=== PATIENT | male | born 1965 | race Caucasian/White ===

== ENCOUNTER 2020-07-22 21:05 | Emergency (ER) | payer BC, SELFPAY ==
[2020-07-22 21:07] VITALS: BP 149/94; PULSE 63; RESP 16; TEMP 36.8; O2SAT 99; BMI 29.0
[2020-07-22 21:14] VITALS: BP 149/94; PULSE 61; O2SAT 99
[2020-07-22 21:30] VITALS: BP 151/91; PULSE 59; O2SAT 99
--- NOTE | 2020-07-22 21:56 | HMH.EDDENT ---
ED Disposition Clinical Impression: Dental infection, Pain, dental Disposition: Home, Self-Care Condition on Discharge: Good Instructions: DI for Dental Pain Additional Instructions: use meds and see pcp and dentist for follow up Prescriptions: clindamycin HCL [Clindamycin HCl] 300 mg PO TID #30 cap Transmission Status: Pending to [facility] [id number] Ketorolac Tromethamine [Toradol 10mg tablet] 10 mg PO Q6HP PRN #7 tab MDD 40mg/day PRN Reason: Moderate To Severe Pain Transmission Status: Pending to [facility] [id number] Referrals: Nahid Segovia [Primary Care Provider] - - Critical Care Critical Care Time: No Attestation: On 07/22/20, the high probability of a clinically significant, sudden or life threatening deterioration of the following system(s) required my full and direct attention, intervention and personal management. The time I documented below is in addition to time spent performing reported procedures but includes the following listed in this critical care notation. Medical Decision Making - Medical Records Medical records reviewed: Yes: I reviewed the patient's medical records. - Escobar Inquiry Pt receiving controlled substance: No Vital Signs: 07/22/20 21:07 07/22/20 21:14 07/22/20 21:30 Temperature 98.3 F Temperature Source Oral Pulse Rate 61 59 L Pulse Rate [Left Radial] 63 Respiratory Rate 16 Blood Pressure 149/94 H 151/91 H Blood Pressure [Right Arm] 149/94 H Blood Pressure Mean 117 118 Blood Pressure Mean [Right Arm] 112 Blood Pressure Source [Right Arm] Automatic Cuff Blood Pressure Position [Right Arm] Sitting 02 Sat by Pulse Oximetry 99 99 99 Oxygen Delivery Method Room Air - Lab Data Lab results reviewed: Yes: I reviewed the patient's lab results. Lab Results 07/22/20 22:06: Sodium 137, Potassium 3.6, Chloride 106, Carbon Dioxide 22, Anion Gap 12.6, BUN 14, Creatinine 0.60 L, Estimated Creat Clear 165, Estimated GFR 140, Est GFR ( Amer) 169, Glucose 103 H, Calcium 9.3 Result diagrams: 07/22/20 22:06 Orders (Tests/Meds): ED MEDICATIONS Generic Name Dose Route Start Last Admin Trade Name Freq PRN Reason Stop Dose Admin Benzocaine/Butamben/Tetracaine HCl 1 gm 07/22/20 21:50 07/22/20 22:15 Tetracaine/Benzocaine/Butamben 56 Gm Bath TP 08/21/20 21:49 1 gm NEEDED PRN Administration Mild to Moderate Pain Ceftriaxone Sodium 1 gm/ 50 mls @ 100 mls/hr 07/22/20 22:00 07/22/20 22:16 Sodium Chloride IV 08/05/20 21:59 100 mls/hr Q24H LI Administration Protocol Clindamycin Phosphate 600 mg/ 104 mls @ 100 mls/hr 07/22/20 21:59 Sodium Chloride IV 07/22/20 23:01 ONCE ONE Protocol Discontinued Medications Generic Name Dose Route Start Last Admin Trade Name Kevinq PRN Reason Stop Dose Admin Ketorolac Tromethamine 60 mg 07/22/20 21:46 07/22/20 22:16 Ketorolac 60mg/2ml Vial IM 07/22/20 21:47 Not Given ONCE ONE Ketorolac Tromethamine 30 mg 07/22/20 21:58 07/22/20 22:15 Ketorolac 30mg/Ml Vial IV 07/22/20 21:59 30 mg ONCE ONE Administration Lidocaine HCl 15 ml 07/22/20 21:50 07/22/20 22:15 Lidocaine 2% Viscous Dalia 15ml Udc PO 07/22/20 21:51 15 ml ONCE ONE Administration Methylprednisolone Sodium Succinate 125 mg 07/22/20 21:58 07/22/20 22:16 Methylprednisolone Sod Succ 125mg Vial IV 07/22/20 21:59 125 mg ONCE ONE Administration ORDERS Category Date Time Status CBC [Complete Blood Count Auto Diff] Stat Lab 07/22/20 22:06 Received Blood Culture Stat Micro 07/22/20 22:06 Received Medical Decision Narrative: ongoing dental infection but no abscess - will add to current treatment and have pt contact pcp and dentist Dental HPI - General Chief complaint: Dental/Oral Stated complaint: Swollen/infected tooth pain in jaw and down neck Time Seen by Provider: 07/22/20 21:15 Mode of Arrival: Ambulatory Source of Information: Patient, Sig
[2020-07-22 22:31] LABS: Anion Gap 12.6 mEq/L (5-15); Blood Urea Nitrogen 14 mg/dl (9-20); Calcium 9.3 mg/dl (8.4-10.2); Carbon Dioxide 22 mmol/L (22.0-30.0); Chloride 106 mmol/L (98-107); Creatinine Clearance Estimated 165 mL/min (50-200); Estimated Glomerular Filt Rate 140 ml/min (>60); GFR (African American) 169 ML/MIN (>60); Glucose 103 mg/dl (74-100); Potassium 3.6 mmoL/L (3.5-5.1); Sodium 137 mmol/L (136-145)
[2020-07-22 22:34] LABS: Basophils % 0.4 % (0.1-2.0); Eosinophils # 0.2 K/mm3 (0.0-0.4); Eosinophils % 2.1 % (0.1-12.0); Hematocrit 41.6 % (42.0-52.0); Hemoglobin 13.9 g/dL (14.1-18.0); Lymphocytes # 1.9 K/mm3 (0.7-4.5); Lymphocytes % 23.4 % (10-50); Mean Corpuscular HGB Conc 33.4 g/dL (31.8-35.4); Mean Corpuscular Hemoglobin 27.6 pg (27.0-31.2); Mean Corpuscular Volume 82.7 fl (80-94); Mean Platelet Volume 7.9 fl (7.4-10.4); Monocytes # 0.9 K/mm3 (0.1-1.0); Monocytes % 11.7 % (1.7-9.3); Neutrophils # 4.9 K/mm3 (1.8-7.8); Neutrophils % 62.2 % (37.0-80.0); Platelet Count 194 K/mm3 (142-424); Red Blood Count 5.04 M/mm3 (4.60-6.20); Red Cell Distribution Width 13.2 % (11.5-17.5); White Blood Count 7.9 K/mm3 (4.8-10.8)
[2020-07-22 22:54] VITALS: BP 132/82; PULSE 81; RESP 18; TEMP 36.8; O2SAT 100
== END 2020-07-22 23:04 | disposition home or self-care (01) ==
PROVIDERS: Emergency Provider Emergency Medicine; PCP Family Medicine
DX: K04.7 Periapical abscess without sinus (principal); K02.9 Dental caries, unspecified
CPT/HCPCS: 80048; 85025; 87040; 96365; 96375; 99282

== ENCOUNTER 2022-04-17 14:52 | Emergency (ER) | payer MEDICAID, SELFPAY ==
[2022-04-17 15:03] VITALS: BP 149/87; PULSE 64; RESP 18; O2SAT 100
--- NOTE | 2022-04-17 15:13 | EXP.UTC ---
Discharge Plan Disposition Patient Disposition: Home, Self-Care Condition: Good Prescriptions Prescriptions: New methylprednisolone 4 mg Tablets,Dose Pack 4 mg PO DIRECTED Qty: 21 0RF No Action ketorolac 10 MG tablet 10 mg PO Q6HP MDD 40mg/day PRN (Reason: Moderate To Severe Pain) Qty: 7 0RF Rx Instructions: Therapy initiated with IV/IM dose Referrals Follow up/Referrals: Alexander Treadwell JR, MD [Physician] - See instructions Kyle Johnson MD [Primary Care Provider] - See instructions Activity Restrictions/Add. Instructions Additional Instructions/Restrictions: Rest the extremity. Take the medications as directed. Follow up with Dr. Treadwell (orthopedics) if you continue to have these symptoms. I put in a referral but you need to call his office and schedule an appointment. Follow up with your regular doctor. GO TO THE ER FOR ANY WORSENING SYMPTOMS Clinical Impressions Clinical Impression: Rib pain on right side, Pain in right shoulder Stand Alone Forms Stand Alone Forms: Work/School Release Instructions Patient Instructions: DI for Rib Contusion, DI for Shoulder Pain Discharge ED Provider: Placido Young [facility] General Stated complaint: back pain, no accident Mode of Arrival: Ambulatory Source of Information: Patient and Spouse Limitations: No Limitations Time Seen by Provider: 04/17/22 15:13 Description of Symptoms (Recalled from Triage Doc. by RN): c/o lower right back and side pain that gets severe with movement for one week. Denies any injury. Pt states I am having muscle spasms History of Present Illness Provider Complaint: He states that for the past 1 week he has had right shoulder pain. His pain is located around his shoulder blade. He denies any known injury, but he states that before his pain started he had to lift a bunch of heavy furniture. He denies any chest pain. He denies shortness of breath, congestion and cough. Related Data Previous Rx's Medication Instructions Recorded ketorolac 10 mg tablet 10 mg PO Q6HP PRN Moderate To 07/22/20 Severe Pain #7 tabs methylprednisolone 4 mg tablets in 4 mg PO DIRECTED #21 tabs 04/17/22 a dose pack Allergies Allergy/AdvReac Type Severity Reaction Status Date / Time No Known Allergies Allergy Verified 04/17/22 15:29 [facility] Disclaimer: The information contained in this section may have been updated after the patient was seen, as this information can be updated by other users. Social History Smoking Status: Former smoker alcohol intake: former current occupational status: employed Travel in the last 8 weeks: None ROS Obtained: Yes All systems reviewed & no additional complaints except as documented Constitutional Constitutional: Denies chills and Denies fever(s) Eyes Eyes: Denies eye discharge ENT Ears, Nose, Mouth, and Throat: Denies dizziness, Denies otalgia and Denies sore throat Cardiovascular Cardiovascular: Denies chest pain Respiratory Respiratory: Denies shortness of breath, Denies chest congestion, Denies cough, Denies stridor and Denies wheezing Gastrointestinal Gastrointestingal: Denies nausea or vomiting Musculoskeletal Musculoskeletal: Reports as per HPI Integumentary/Breasts Skin/Breast: Denies rash Neurologic Neurologic: Denies dizziness and Denies paresthesias Allergic/Immunologic Allergic/Immunologic: Denies wheezing Physical Exam General General appearance: alert and in no apparent distress Head Head exam: atraumatic, normocephalic and normal inspection Eye Eye exam: Present normal appearance, PERRL and EOMI ENT ENT exam: Present normal exam, normal oropharynx, mucous membranes moist, TM's normal bilaterally and normal external ear exam Neck Neck exam: Present normal inspection, full ROM and trachea midline; Absent meningismus or lymphadenopathy Chest Chest inspection: Present normal inspection and
[2022-04-17 15:26] VITALS: BP 153/91; PULSE 64; RESP 19; TEMP 36.8; O2SAT 97
[2022-04-17 16:09] VITALS: BP 151/91; PULSE 64; RESP 20; TEMP 36.8; O2SAT 97
== END 2022-04-17 16:08 | disposition home or self-care (01) ==
PROVIDERS: Emergency Provider Nurse Practitioner Family; PCP Family Medicine
DX: R07.81 Pleurodynia (principal); M25.511 Pain in right shoulder
CPT/HCPCS: 96372; 99212; 99213; G0463

== ENCOUNTER 2023-04-02 16:24 | Emergency (ER) | payer MEDICAID, SELFPAY ==
[2023-04-02 16:26] VITALS: BP 143/94; PULSE 62; RESP 18; O2SAT 100; BMI 30.7
--- NOTE | 2023-04-02 17:02 | HMH.EDGENADL ---
Discharge Plan Disposition Patient Disposition: Home, Self-Care Prescriptions Prescriptions: No Action ketorolac 10 MG tablet 10 mg PO Q6HP MDD 40mg/day PRN (Reason: Moderate To Severe Pain) Qty: 7 0RF Rx Instructions: Therapy initiated with IV/IM dose methylprednisolone 4 mg Tablets,Dose Pack 4 mg PO DIRECTED Qty: 21 0RF Referrals Follow up/Referrals: Mick Rodrigues MD [Staff Physician] - See instructions (For further evaluation of your heart to include an echocardiogram and a Holter/event monitor.) Kyle Johnson MD [Primary Care Provider] - See instructions Clinical Impressions Clinical Impression: Near syncope, Nausea Discharge ED Provider: Ziyad Blanton General Adult HPI General Chief complaint: Dizziness Stated complaint: KENNY, nausea, light-headed Time Seen by Provider: 04/02/23 16:51 Mode of Arrival: Ambulatory Source of Information: Patient Limitations: No Limitations Description of Symptoms (Recalled from ER Triage Doc. by RN): patient reports he was driving and became light headed and had some nausea. Patient reports he has not had these feelings before. Denies other symptoms and reports he has no pain. History of Present Illness HPI narrative: Mr. Sanchez is a 58-year-old gentleman who states that he is previously healthy presents to the emergency department with nausea and near syncope. States that he felt fine 3 hours ago and was in his normal state of health and while he was driving all of a sudden he states he felt nauseated and a tingling sensation, over his body as if he were going to pass out. Denies any chest pain any chest pressure fevers chills nausea vomiting diarrhea or any other symptoms. States that his symptoms have significantly improved since that time is largely asymptomatic at the moment. Denies any cardiopulmonary disease in the past. Related Data Previous Rx's Medication Instructions Recorded ketorolac 10 mg tablet 10 mg PO Q6HP PRN Moderate To 07/22/20 Severe Pain #7 tabs methylprednisolone 4 mg tablets in 4 mg PO DIRECTED #21 tabs 04/17/22 a dose pack Allergies Allergy/AdvReac Type Severity Reaction Status Date / Time No Known Allergies Allergy Verified 04/17/22 15:29 [facility] Disclaimer: The information contained in this section may have been updated after the patient was seen, as this information can be updated by other users. Social History (Updated 04/18/22 @ 21:44 by Placido Young APRN) Smoking Status: Current some day smoker alcohol intake: former current occupational status: employed Travel in the last 8 weeks: None ROS Obtained: Yes All systems reviewed & no additional complaints except as documented Physical Exam General General appearance: alert Respiratory Respiratory exam: Present normal lung sounds bilaterally Cardiovascular Cardiovascular exam: Present regular rate; Absent tachycardia Abdominal Exam Abdominal exam: Present soft; Absent distention or tenderness Neurological Exam Neurological exam: Present alert, oriented X3, CN II-XII intact and normal gait; Absent motor sensory deficit Medical Decision Making Escobar Inquiry Pt receiving controlled substance: No Vital Signs: 04/02/23 16:26 04/02/23 18:19 Pulse Rate 61 Pulse Rate [Right] 62 Respiratory Rate 18 18 Blood Pressure 133/86 Blood Pressure [Right Arm] 143/94 H Blood Pressure Mean [Right Arm] 110 Blood Pressure Source Automatic Cuff 02 Sat by Pulse Oximetry 100 98 Oxygen Delivery Method Room Air Room Air Lab Data Lab results reviewed: Yes I reviewed the patient's lab results. Lab Results 04/02/23 17:05: WBC 7.9, RBC 5.22, Hgb 14.9, Hct 43.4, MCV 83.1, MCH 28.5, MCHC 34.3, RDW 13.6, Plt Count 188, MPV 8.2, Neut % (Auto) 61.5, Lymph % (Auto) 28.5, [place] % (Auto) 6.6, Eos % (Auto) 3.0, Baso % (Auto) 0.4, Neut # (Auto) 4.9, Lymph # (Auto) 2.3, [place] # (Auto) 0.5, Eos # (Auto) 0.2, Baso # (Auto) 0.0, Sodium 135 L, Potassium 3.6, Chloride 103, Carbon Dioxide 26, Anion Gap 9.6, BUN 15, Creatinine 0.80, Estimated Creat Clear 127, Estimated GFR 99, Est GFR ( Amer) 120, Glucose 99, Calcium 8.5, Magnesium 1.9, Total Bilirubin 0.4, AST 39, ALT 31, Alkaline Phosphatase 52, Troponin I < 0.01, Total Protein 7.1, Albumin 4.4, Globulin 2.7, Albumin/Globulin Ratio 1.6, TSH 1.94 04/02/23 17:05 04/02/23 17:05 Orders (Tests/Meds): ED MEDICATIONS Discontinued Medications Generic Name Dose Route Start Last Admin Trade Name Royal PRN Reason Stop Dose Admin Lactated Ringer's 1,000 mls @ 999 mls/hr 04/02/23 17:00 04/02/23 17:13 Lactated Ringer's 1000 Ml Bag IV 04/02/23 18:00 999 mls/hr .Q1H1M LI Administration Ondansetron HCl 4 mg 04/02/23 16:56 04/02/23 17:13 Ondansetron 4mg/2ml Vial IV 04/02/23 16:57 4 mg ONCE ONE Administration ORDERS Category Date Time Status CBC w/Auto Diff [Complete Blood Count Auto Diff] Stat Lab 04/02/23 17:05 Completed CMP [Comprehensive Metabolic Panel] Stat Lab 04/02/23 17:05 Completed Magnesium Stat Lab 04/02/23 17:05 Completed TSH [Thyroid Stimulating Hormone] Stat Lab 04/02/23 17:05 Completed Trop I [Troponin I] Stat Lab 04/02/23 17:05 Completed Troponin I Q3H Lab 04/02/23 20:00 Ordered Troponin I Q3H Lab 04/02/23 23:00 Ordered Medical Decision Narrative: Well-appearing 58-year-old gentleman with a normal cardiopulmonary and neurovascular exam at the moment who presents today with near syncope differential includes metabolic abnormalities, arrhythmia, dehydration, etc. Will get basic blood work including EKG troponin CMP administer IV fluids and nausea medication and reassess. If his workup is negative we will likely have him closely follow-up outpatient with cardiology to get an echo and a Holter or event monitor. EKG performed which I personally interpreted shows a ventricular rate of 53 sinus bradycardia normal axis no acute ischemic changes noted no significant conduction abnormalities noted this is nondiagnostic from an emergency standpoint Reassessment 6:32 PM patient feeling significantly better no further events while in the emergency department labs unremarkable has been advised to follow-up with her classroom coordinator which she understood and a referral has been made. Patient was discharged in improved and stable condition. He denied the need for any antiemetics to go home with and is tolerating p.o. no longer is nauseated. Serial exams benign. Critical Care Critical Care Time Critical Care Time: No
--- NOTE | 2023-04-02 17:09 | ECG_ITS ---
APPROVED REPORT Exam: Resting ECG HR:53 bpm ECG Measurements Heart Rate 53 AXES OK 140 P 63 QRSd 99 QRS 23 QT 410 T 49 QTc 392 Conclusion SINUS BRADYCARDIA BORDERLINE ECG UNCONFIRMED REPORT Electronically signed by : Kyle Ying MD 04/03/2023 20:32:27
[2023-04-02] MEDS: LACTATED RINGERS 1000ML 1,000 ML 999 ML IV (17:13)
[2023-04-02] MEDS: ONDANSETRON 4MG/2ML VIAL 4 MG IV (17:13)
[2023-04-02 17:17] LABS: Basophils % 0.4 % (0.1-2.0); Eosinophils # 0.2 K/mm3 (0.0-0.4); Hematocrit 43.4 % (42.0-52.0); Hemoglobin 14.9 g/dL (14.1-18.0); Lymphocytes # 2.3 K/mm3 (0.7-4.5); Lymphocytes % 28.5 % (10-50); Mean Corpuscular HGB Conc 34.3 g/dL (31.8-35.4); Mean Corpuscular Hemoglobin 28.5 pg (27.0-31.2); Mean Corpuscular Volume 83.1 fl (80-94); Mean Platelet Volume 8.2 fl (7.4-10.4); Monocytes # 0.5 K/mm3 (0.1-1.0); Monocytes % 6.6 % (1.7-9.3); Neutrophils # 4.9 K/mm3 (1.8-7.8); Neutrophils % 61.5 % (37.0-80.0); Platelet Count 188 K/mm3 (142-424); Red Blood Count 5.22 M/mm3 (4.60-6.20); Red Cell Distribution Width 13.6 % (11.5-17.5); White Blood Count 7.9 K/mm3 (4.8-10.8)
[2023-04-02 17:27] LABS: Alanine Aminotransferase 31 U/L (12-78); Albumin Level 4.4 g/dl (3.5-5.0); Albumin/Globulin Ratio 1.6 (1.1-1.8); Alkaline Phosphatase 52 U/L (38-126); Anion Gap 9.6 mEq/L (5-15); Aspartate Amino Transferase 39 U/L (17-59); Bilirubin,Total 0.4 mg/dl (0.2-1.3); Blood Urea Nitrogen 15 mg/dl (9-20); Calcium 8.5 mg/dl (8.4-10.2); Carbon Dioxide 26 mmol/L (22.0-30.0); Chloride 103 mmol/L (98-107); Creatinine Clearance Estimated 127 mL/min (50-200); Estimated Glomerular Filt Rate 99 ml/min (>60); GFR (African American) 120 ML/MIN (>60); Globulin 2.7 g/dL (1.3-3.2); Glucose 99 mg/dl (74-100); Magnesium 1.9 mg/dl (1.6-2.3); Potassium 3.6 mmoL/L (3.5-5.1); Sodium 135 mmol/L (136-145); Total Protein,Serum 7.1 g/dl (6.3-8.2)
[2023-04-02 17:41] LABS: Troponin I < 0.01 ng/ml (0.00-0.034)
[2023-04-02 17:58] LABS: Thyroid Stimulating Hormone 1.94 uIU/mL (0.465-4.68)
[2023-04-02 18:19] VITALS: BP 133/86; PULSE 61; RESP 18; O2SAT 98
[2023-04-02 18:47] VITALS: BP 132/88; PULSE 71; RESP 18; TEMP 36.7; O2SAT 98
== END 2023-04-02 18:48 | disposition home or self-care (01) ==
PROVIDERS: Emergency Provider Student in an Organized Health Care Education/Training Program; PCP Family Medicine
DX: R55 Syncope and collapse (principal); R11.0 Nausea; F17.200 Nicotine dependence, unspecified, uncomplicated; R00.1 Bradycardia, unspecified
CPT/HCPCS: 80053; 83735; 84443; 84484; 85025; 93005; 96361; 96374; 99285; J2405

== ENCOUNTER 2023-04-07 14:52 | Outpatient (CLI) | payer MEDICAID, SELFPAY | END 2023-04-07 23:59 | LOC: RT 14:53 | PROVIDERS: PCP Family Medicine; Visit Provider Physician Assistant | DX: R07.89 Other chest pain (principal); R11.0 Nausea; R42 Dizziness and giddiness; R55 Syncope and collapse | CPT/HCPCS: 93270 ==

== ENCOUNTER 2023-05-05 08:56 | Emergency (ER) | payer MEDICAID, SELFPAY ==
[2023-05-05 08:57] VITALS: BP 151/116; PULSE 64; RESP 18; TEMP 36.4; O2SAT 97; BMI 30.7
[2023-05-05 09:13] LABS: Coronavirus 19, PCR Not Detected (NotDetected); Influenza B, PCR Not Detected (NotDetected)
--- NOTE | 2023-05-05 09:25 | ECG_ITS ---
APPROVED REPORT Exam: Resting ECG HR:74 bpm ECG Measurements Heart Rate 74 AXES TX 163 P 75 QRSd 96 QRS -4 QT 362 T 35 QTc 389 Conclusion SINUS RHYTHM NORMAL ECG UNCONFIRMED REPORT Electronically signed by : Kyle Ying MD 05/05/2023 17:15:53
--- NOTE | 2023-05-05 09:33 | XR_ITS ---
FINAL REPORT CLINICAL HISTORY: fever, cough COMPARISON: None FINDINGS: Two views of the chest were obtained. The heart size and pulmonary vascularity are within normal limits. The mediastinum is normal. No acute pulmonary abnormality is identified. There is no pneumothorax. The bony thorax is intact. IMPRESSION: No active cardiopulmonary disease. Reviewed, Interpreted and Dictated by Wild Mehta III, MD Transcribed by Ladan Lopez Authenticated and [facility]
[2023-05-05] MEDS: KETOROLAC 30MG/ML VIAL 30 MG IM (09:42)
[2023-05-05] MEDS: ACETAMINOPHEN 500MG TAB 1000 MG PO (09:42)
[2023-05-05] MEDS: ONDANSETRON 4MG ODT 4 MG SL (09:42)
--- NOTE | 2023-05-05 09:49 | ED_ITS ---
Discharge Plan Disposition Patient Disposition: Home, Self-Care Condition: Good Prescriptions Prescriptions: New [id number] [Bromfed DM] 2-30-10 mg/5 mL syrup 5 ml PO Q6H PRN (Reason: allergy symptoms) Qty: 118 0RF No Action meloxicam 15 mg tablet PO Patient Comments: TAKE 1 TABLET BY MOUTH DAILY pregabalin 75 mg capsule PO Patient Comments: TAKE 1 CAPSULE BY MOUTH TWICE DAILY rosuvastatin 20 mg tablet PO Patient Comments: TAKE 1 TABLET BY MOUTH DAILY methylprednisolone 4 mg Tablets,Dose Pack 4 mg PO DIRECTED Qty: 21 0RF Referrals Follow up/Referrals: Kyle Johnson MD [Primary Care Provider] - See instructions Activity Restrictions/Add. Instructions Additional Instructions/Restrictions: You were evaluated in the emergency department today. Take Tylenol and ibuprofen every 4-6 hours as needed for pain and fever. Hydrate is much as possible. occupational medicine specialist your prescription for cough syrup and take in addition to the Tylenol and ibuprofen as needed. Follow-up with your primary care provider over the next week for reassessment. Return to the emergency department for new or worsening symptoms. Clinical Impressions Clinical Impression: Influenza A Instructions Patient Instructions: DI for Influenza -- Adult Discharge ED Provider: Paula Snow General Adult HPI General Chief complaint: Upper Respiratory Infection Stated complaint: fever, cough, congestion Time Seen by Provider: 05/05/23 09:11 Mode of Arrival: Ambulatory Source of Information: Patient Limitations: No Limitations Description of Symptoms (Recalled from ER Triage Doc. by RN): Patient complaint of cough, congestion and fever since Friday. States that his chest hurts when he coughs. Reports that his has the Flu. History of Present Illness HPI narrative: This patient is a 58-year-old male with history of hyperlipidemia presenting to the emergency department for evaluation with concern for cough, congestion, brain fog, and fever since Friday. His at home has the flu and has had similar symptoms. He states that his is starting to get better, but he is still feeling bad. He has tried NyQuil without good improvement. He notes that he has pain in his muscles with coughing because he has been coughing so much. He did have vomiting on Friday, but he has not been vomiting since then. No other concerns noted, such as significant chest pain, shortness of breath, abdominal pain, or other concerns. Related Data Home Medications Medication Instructions Recorded Confirmed meloxicam 15 mg tablet mg PO 04/07/23 04/07/23 pregabalin 75 mg capsule mg PO 04/07/23 04/07/23 rosuvastatin 20 mg tablet mg PO 04/07/23 04/07/23 Previous Rx's Medication Instructions Recorded methylprednisolone 4 mg tablets in 4 mg PO DIRECTED #21 tabs 04/17/22 a dose pack [id number]-czjqfzqpvgrdzoa-IQ 5 ml PO Q6H PRN allergy symptoms 05/05/23 2 mg-30 mg-10 mg/5 mL oral syrup #118 mL (Bromfed DM) Allergies Allergy/AdvReac Type Severity Reaction Status Date / Time No Known Allergies Allergy Verified 04/07/23 14:01 [facility] Disclaimer: The information contained in this section may have been updated after the domenic ent was seen, as this information can be updated by other users. Social History Smoking Status: Current every day smoker alcohol intake: former current occupational status: employed Travel in the last 8 weeks: None ROS Obtained: Yes All systems reviewed & no additional complaints except as documented Physical Exam General General appearance: alert and in no apparent distress Head Head exam: atraumatic and normocephalic Eye Eye exam: Present normal appearance, PERRL and EOMI ENT ENT exam: Present normal exam, normal oropharynx, mucous membranes moist and normal external ear exam Neck Neck exam: Present normal inspection, full ROM and trachea midline; Absent tenderness Chest Chest inspection: Present normal inspection and symmetric chest wall rise; Absent tenderness Respiratory Respiratory exam: Present normal lung sounds bilaterally; Absent respiratory distress, wheezes, stridor or accessory muscle use Cardiovascular Cardiovascular exam: Present regular rate and normal rhythm Abdominal Exam Abdominal exam: Present soft; Absent distention, tenderness or guarding Extremities Exam Extremities exam: Present normal inspection, full ROM and normal capillary refill; Absent tenderness or edema Back Exam Back exam: Present normal inspection and full ROM; Absent tenderness Neurological Exam Neurological exam: Present alert, oriented X3, CN II-XII intact and normal gait; Absent motor sensory deficit Psychiatric Psychiatric exam: Present normal affect and normal mood Skin Skin exam: Present warm and dry Medical Decision Making Medical Records Medical records reviewed: Yes I reviewed the patient's medical records. Escobar Inquiry Pt receiving controlled substance: No Vital Signs: 05/05/23 08:57 05/05/23 10:52 Temperature 97.6 F 98.2 F Temperature Source Oral Oral Pulse Rate 63 Pulse Rate [Radial] 64 Respiratory Rate 18 16 Blood Pressure 125/90 Blood Pressure [Right Arm] 151/116 H Blood Pressure Mean [Right Arm] 127 Blood Pressure Source Automatic Cuff Blood Pressure Source [Right Arm] Automatic Cuff Blood Pressure Position Sitting Blood Pressure Position [Right Arm] Sitting 02 Sat by Pulse Oximetry 97 Oxygen Delivery Method Room Air Room Air Lab Data Lab results reviewed: Yes I reviewed the patient's lab results. Lab Results 05/05/23 09:10: SARS-CoV-2 (PCR) Not detected, Influenza A Untype (PCR) Detected A, Influenza Type B (PCR) Not detected Orders (Tests/Meds): ED MEDICATIONS Discontinued Medications Generic Name Dose Route Start Last Admin Trade Name Freq PRN Reason Stop Dose Admin Acetaminophen 1,000 mg 05/05/23 09:33 05/05/23 09:42 Acetaminophen 500mg Tab PO 05/05/23 09:34 1,000 mg ONCE ONE Administration Ketorolac Tromethamine 30 mg 05/05/23 09:33 05/05/23 09:42 Ketorolac 30mg/Ml Vial IM 05/05/23 09:34 30 mg ONCE ONE Administration Ondansetron HCl 4 mg 05/05/23 09:33 05/05/23 09:42 Ondansetron 4mg Odt SL 05/05/23 09:34 4 mg ONCE ONE Administration ORDERS Category Date Time Status XR chest 2V Stat Exams 05/05/23 09:33 Completed Rapid PCR Covid and Flu A/B Stat Lab 05/05/23 09:10 Completed ECG initial Besson Routine Y 05/05/23 09:25 Completed ECG Data Tracing #1: I reviewed this ECG and interpreted as documented below: Normal sinus rhythm with a ventricular rate of [address] changes concerning for ischemia. Normal intervals. ECG initial impression date: 05/05/23 ECG initial impression time: 09:28 Medical Decision Narrative: In summary, this patient is a 8-year-old male presenting to the Emergency Depar tment for evaluation of fever, cough, brain fog, and congestion since Friday. His and him is the flu.. Differential diagnoses considered include but are not limited to viral syndrome, pneumonia, dehydration, migraine. Ruling out the most morbid conditions drove assessment. On exam, the patient is well-appearing with normal vital signs on cardiac telemetry. He does have a dry, hacking cough. Cardiopulmonary exam is reassuring. He is neurologically intact with no meningismus. I feel he most likely has a viral URI. Workup included 2 view chest x-ray, EKG, as well as viral swab. He was given IM Toradol, oral Tylenol, oral Zofran presented medic improvement. I independently interpreted x-ray prior to the radiologist read and noted no focal consolidation, pulmonary edema, or other concerns. Please see their read for final interpretation. Labs were obtained that demonstrated positive flu a test. On reassessment, patient had good improvement after administration of interventions above. He is resting company with normal vital signs on cardiac telemetry. Given this, feel that he is appropriate for discharge with instructions for supportive management of influenza. He was given strict return precautions and was discharged in stable condition with prescription for Bromfed. Critical Care Critical Care Time Critical Care Time: No
[2023-05-05 10:04] LABS: Influenza A, PCR Detected (NotDetected)
[2023-05-05 10:52] VITALS: BP 125/90; PULSE 63; RESP 16; TEMP 36.8; O2SAT 96
== END 2023-05-05 10:53 | disposition home or self-care (01) ==
PROVIDERS: Emergency Provider Emergency Medicine; PCP Family Medicine
DX: J10.1 Influenza due to other identified influenza virus with other respiratory manifestations (principal); R50.9 Fever, unspecified; R07.1 Chest pain on breathing; R05.8 Other specified cough; F17.210 Nicotine dependence, cigarettes, uncomplicated
CPT/HCPCS: 71046; 87636; 93005; 96372; 99283